=== PATIENT | female | born 1940 | race Caucasian/White ===

== ENCOUNTER 2017-01-25 16:22 | Emergency (ER) | payer MEDICARE ==
[~2017-01-25] VITALS: Ht 157.5 cm; Wt 65.0 kg
[2017-01-25] MEDS ORDERED: MORPHINE SULFATE 4 MG/ML INJ IV PUSH ONE (17:45)
[2017-01-25] MEDS ORDERED: TETANUS/DIPHTHERIA TOXOID ADULT 0.5 ML VIAL IM ONE (17:45)
[2017-01-25] MEDS ORDERED: ONDANSETRON HCL 4 MG/2 ML VIAL IV PUSH ONE (17:45)
[2017-01-25 17:52] LABS: AUTOMATED NEUTROPHIL # 3.9 TH/MM3 (1.8-7.7); BASOPHIL % 0.8 % (0.0-2.0); EOSINOPHIL # 0.1 TH/MM3 (0-0.4); EOSINOPHIL % 2.5 % (0.0-4.0); HEMATOCRIT 35.4 % (35.0-46.0); HEMO FLAGS DIFF FINAL; LYMPH % 19.5 % (9.0-44.0); LYMPHOCYTE # 1.1 TH/MM3 (1.0-4.8); MEAN CELL VOLUME 89.4 FL (80.0-100.0); MEAN CORPUSCULAR HEMOGLOBIN 29.4 PG (27.0-34.0); MEAN CORPUSCULAR HGB CONC 32.8 % (32.0-36.0); MONO % 6.7 % (0.0-8.0); NEUT % 70.5 % (16.0-70.0); PLATELET COUNT 197 TH/MM3 (150-450); RED BLOOD COUNT 3.96 MIL/MM3 (4.00-5.30); RED CELL DISTRIBUTION WIDTH 13.8 % (11.6-17.2); WHITE BLOOD COUNT 5.6 TH/MM3 (4.0-11.0)
[2017-01-25 18:00] LABS: APTT (PATIENT) 30.1 SEC (24.3-30.1); INTERNATIONAL NORMALIZED RATIO 1.9 RATIO; PROTHROMBIN TIME - PATIENT 21.6 SEC (9.8-11.6)
--- NOTE | 2017-01-25 18:01 | RADRPT ---
EXAM DATE/TIME: 01/25/2017 17:25 [facility] COMPARISON: No previous studies available for comparison. INDICATIONS : Pain due to fall. MEDICAL HISTORY : None. SURGICAL HISTORY : Shoulder, elbow, hip. ENCOUNTER: Initial ACUITY: 1 day PAIN SCORE: 6/10 LOCATION: Left upper extremity shoulder FINDINGS: There is a remote fracture deformity left proximal humerus with operative fixation consisting of late ral plate and screw fixation. No acute fractures are seen. CONCLUSION: Remote postsurgical changes left humerus. Rob Durán MD on January 25, 2017 at 18:00 Board Certified Radiologist. This report was verified electronically.
--- NOTE | 2017-01-25 18:04 | RADRPT ---
EXAM DATE/TIME: 01/25/2017 17:31 [facility] COMPARISON: No previous studies available for comparison. INDICATIONS : Pain due to fall. MEDICAL HISTORY : None. SURGICAL HISTORY : Shoulder, elbow, hip. ENCOUNTER: Initial ACUITY: 1 day PAIN SCORE: 6/10 LOCATION: Left chest breast. FINDINGS: A single view of the chest demonstrates the lungs to be symmetrically aerated without evidence of mas s, infiltrate or effusion. The cardiomediastinal contours are unremarkable. Osseous structures are intact. CONCLUSION: No acute disease. Rob Durán MD on January 25, 2017 at 18:03 Board Certified Radiologist. This report was verified electronically.
--- NOTE | 2017-01-25 18:04 | RADRPT ---
EXAM DATE/TIME: 01/25/2017 17:42 [facility] COMPARISON: No previous studies available for comparison. INDICATIONS : Pain due to fall. MEDICAL HISTORY : None. SURGICAL HISTORY : Shoulder, elbow, hip. ENCOUNTER: Initial ACUITY: 1 day PAIN SCORE: 6/10 LOCATION: Left upper extremity elbow. FINDINGS: There is remote deformity of the proximal ulna with plate and screw fixation seen across the proximal ulnar shaft and olecranon. Remote fracture deformity of the proximal radius and plate and screw fixa tion of the mid radius identified. No acute fractures. No effusion. CONCLUSION: No acute disease. Rob Durán MD on January 25, 2017 at 18:02 Board Certified Radiologist. This report was verified electronically.
--- NOTE | 2017-01-25 18:07 | PD ---
HPI Chief Complaint: Fall Time Seen by Provider: 17:04 Travel History International Travel<30 days: No Contact w/Intl Traveler<30days: No Traveled to known affect area: No History of Present Illness HPI 76-year-old female that presents to the ED for evaluation of fall. Patient was brought here by ambulance for avulsion of a fall in the bathroom. Patient was apparently in the toilet and trying to get up she lost her balance and fell. She has chronic changes to her left upper and lower extremity secondary to previous CVAs. Patient has had 4 CVAs in the past and has chronic deformities to the left side secondary to this. She has now is weakness on the left side. She does take blood thinners which she does not what she takes. She denies any loss of consciousness but she states that she is not sure because she doesn't remember everything. She does have an abrasion to the left side of her head. She denies any new numbness, tilling, weakness. She does have pain to her left side especially of left elbow, shoulder, ribs, hip. She has had fractures on the left hip as well as the left elbow with surgeries in the past. No fevers chills or sweats. No blurry vision or double vision. Allergies to tramadol. [place] and she was coming here to visit to go to her son's wedding and she was trying to get ready for this. Patient was not given anything for the pain. She denies any back pain which she states having some neck pain. PFSH Past Medical History Cerebrovascular Accident: Yes (4 strokes and 1 tia ) Diabetes: Yes Social History Alcohol Use: No Tobacco Use: No Substance Use: No Allergies-Medications (Allergen,Severity, Reaction): Coded Allergies: tramadol (Verified Allergy, Severe, Itching, 01/25/17) Review of Systems Except as stated in HPI: all other systems reviewed are Neg Physical Exam Narrative GENERAL: SKIN: Warm and dry. Patient has a skin abrasion to the left side of the temporal area. HEAD: Atraumatic. Normocephalic. EYES: Pupils equal and round. No scleral icterus. No injection or drainage. ENT: No nasal bleeding or discharge. Mucous membranes pink and moist. Tongue is midline. No uvula deviation. NECK: Trachea midline. No JVD. CARDIOVASCULAR: Regular rate and rhythm. No murmurs, S3, S4. RESPIRATORY: No accessory muscle use. Clear to auscultation. Breath sounds equal bilaterally. GASTROINTESTINAL: Abdomen soft, non-tender, nondistended. Hepatic and splenic margins not palpable. MUSCULOSKELETAL: Extremities without clubbing, cyanosis, or edema. No obvious deformities. Patient has obvious weakness to the left side of the body 4 out of 5. Mainly to the left upper and lower extremity. Some soft tissue swelling noted on the left lower leg which appears to be chronic. 1+ pitting edema in the left leg. Somewhat painful with touching the left elbow with touch as well as with movement. Also painful on the left hip with touch and movement. NEUROLOGICAL: Awake and alert. No obvious cranial nerve deficits. Motor grossly within normal limits. Five out of 5 muscle strength in the arms and legs. Normal speech. PSYCHIATRIC: Appropriate mood and affect; insight and judgment normal. Data Data Last Documented VS Vital Signs Date Time Temp Pulse Resp B/P (MAP) Pulse Ox O2 Delivery O2 Flow Rate FiO2 01/25/17 19:32 98.1 76 18 145/76 (99) 100 Orders Orders Electrocardiogram (01/25/17 17:) Complete Blood Count With Diff (01/25/17 17:) Basic Metabolic Panel (Bmp) (01/25/17 17:) Prothrombin Time / Inr (Pt) (01/25/17 17:) Act Partial Throm Time (Ptt) (01/25/17 17:) Chest, Single Ap (01/25/17 17:) Ct Brain W/O Iv Contrast(Rout) (01/25/17 17:) Iv Access Insert/Monitor (01/25/17 17:) Ecg Monitoring (01/25/17 17:) Oximetry (01/25/17 17:) Type And Screen (01/25/17 17:) Elbow, Complete (4 Vws) (01/25/17 17:) Hip, Uni(Ap&Lat) W Ap Pelvis (01/25/17 17:) Shoulder, Limited(2vws) (01/25/17 17:) Ice/Cold Pack (01/25/17 17:) Ct Cerv Spine W/O Contrast (01/25/17 ) Morphine Inj (Morphine Inj) (01/25/17 17:45) Ondansetron Inj (Zofran Inj) (01/25/17 17:45) Tetanus/Diphtheria Tox Adult (Tetanus/Di (01/25/17 17:45) Acetaminophen (Tylenol) (01/25/17 18:45) Wound Care (01/25/17 19:06) Lidocaine 1% Inj (50 Ml) (Xylocaine 1% I (01/25/17 19:15) Labs Laboratory Tests Test 01/25/17 17:15 White Blood Count 5.6 TH/MM3 Red Blood Count 3.96 MIL/MM3 Hemoglobin 11.6 GM/DL Hematocrit 35.4 % Mean Corpuscular Volume 89.4 FL Mean Corpuscular Hemoglobin 29.4 PG Mean Corpuscular Hemoglobin Concent 32.8 % Red Cell Distribution Width 13.8 % Platelet Count 197 TH/MM3 Mean Platelet Volume 10.0 FL Neutrophils (%) (Auto) 70.5 % Lymphocytes (%) (Auto) 19.5 % Monocytes (%) (Auto) 6.7 % Eosinophils (%) (Auto) 2.5 % Basophils (%) (Auto) 0.8 % Neutrophils # (Auto) 3.9 TH/MM3 Lymphocytes # (Auto) 1.1 TH/MM3 Monocytes # (Auto) 0.4 TH/MM3 Eosinophils # (Auto) 0.1 TH/MM3 Basophils # (Auto) 0.0 TH/MM3 CBC Comment DIFF FINAL Differential Comment Prothrombin Time 21.6 SEC Prothromb Time International Ratio 1.9 RATIO Activated Partial Thromboplast Time 30.1 SEC Blood Urea Nitrogen 26 MG/DL Creatinine 1.14 MG/DL Random Glucose 159 MG/DL Calcium Level 8.9 MG/DL Sodium Level 141 MEQ/L Potassium Level 4.3 MEQ/L Chloride Level 107 MEQ/L Carbon Dioxide Level 28.9 MEQ/L Anion Gap 5 MEQ/L Estimat Glomerular Filtration Rate 47 ML/MIN MDM Medical Decision Making Medical Screen Exam Complete: Yes Emergency Medical Condition: Yes Medical Record Reviewed: Yes Interpretation(s) CBC & BMP Diagram 01/25/17 17:15 Calcium Level 8.9 Last Impressions Shoulder X-Ray 01/25/171700 Signed Impressions: Service Date/Time: Wednesday, January 25, 2017 17:25 - CONCLUSION: Remote postsurgical changes left humerus. Rob Durán MD Hip and Pelvis X-Ray 01/25/171700 Signed Impressions: Service Date/Time: Wednesday, January 25, 2017 17:25 - CONCLUSION: No acute bony injury Deniz Appiah MD Head CT 01/25/171700 Signed Impressions: Service Date/Time: Wednesday, January 25, 2017 17:56 - CONCLUSION: No acute disease. Rob Durán MD Elbow X-Ray 01/25/171700 Signed Impressions: Service Date/Time: Wednesday, January 25, 2017 17:42 - CONCLUSION: No acute disease. Rob Durán MD Chest X-Ray 01/25/171700 Signed Impressions: Service Date/Time: Wednesday, January 25, 2017 17:31 - CONCLUSION: No acute disease. Rob Durán MD Cervical Spine CT 01/25/17 0000 Signed Impressions: Service Date/Time: Wednesday, January 25, 2017 17:56 - CONCLUSION: 1. Degenerative changes of the spine are noted. Rob Durán MD Differential Diagnosis Fracture versus head injury versus syncope versus fall versus contusion versus bruise Narrative Course 76-year-old female that presents to the ED for evaluation of fall in the bathroom. Patient was properly examined and was found to have signs and symptoms consistent with fall. Labs and imaging were ordered. Labs and imaging showed no sign of acute disease. Case was discussed in my attending Dr. Peacock who agrees to send patient home. Patient has pain medication at home. Patient was told to take his pain medication as needed. Tylenol for pain. Motrin. Follow-up with PCP. See ED worsening symptoms. Wound care was done for the abrasion on the head. All questions were answered to the best of our ability. is present at bedside who is reliable and agrees with plan. Before being discharged I was asked to reasses wound to the left head, it does appear to have a small laceration about 1 cm. I recommend noe. Patient and family agree. Told to get noe removed in 1 week. Wound care endorsed. Procedures Procedure Narrative LACERATION LOCATION: left temporal area LENGTH: 1 cm NUMBER OF STITCHES/NOE: 2 noe REPAIR: The area of the laceration was prepped with Betadine and sterilely draped. The laceration was infiltrated with 1% Xylocaine. The wound was copiously irrigated and explored without evidence of foreign body, tendon injury or neurovascular injury. The wound was closed using sterile stapler. This was a 1 layer repair. A sterile dressing was applied. The patient was advised to keep the dressing clean and dry. Patient tolerated the procedure well. Diagnosis Primary Impression: Fall Qualified Codes: W19.XXXA - Unspecified fall, initial encounter Additional Impressions: Head contusion Qualified Codes: S00.93XA - Contusion of unspecified part of head, initial encounter Multiple contusions Skin abrasion Patient Instructions: General Instructions Additional Instructions: Taking pain medication as needed. Motrin or Tylenol for pain. Follow with PCP. See ED if worsening symptoms. Ice to the area of pain. Med/Other Pt SpecificInfo: No Change to Meds Disposition: 01 DISCHARGE HOME Condition: Stable Nikolai Sykes Jan 25, 2017 18:07
--- NOTE | 2017-01-25 18:09 | RADRPT ---
EXAM DATE/TIME: 01/25/2017 17:56 [facility] COMPARISON: No previous studies available for comparison. INDICATIONS : Trauma; fall. RADIATION DOSE: 52.71 CTDIvol (mGy) MEDICAL HISTORY : Stroke. SURGICAL HISTORY : None. ENCOUNTER: Initial ACUITY: 1 day PAIN SCALE: 5/10 LOCATION: cranial TECHNIQUE: Multiple contiguous axial images were obtained of the head. Using automated exposure control and adj ustment of the mA and/or kV according to patient size, radiation dose was kept as low as reasonably a chievable to obtain optimal diagnostic quality images. DICOM format image data is available electro nically for review and comparison. FINDINGS: There is encephalomalacia in the right cerebral hemisphere noted in the right frontal, parietal, and occipital regions from remote MCA and [employer] infarct. Remote lacunar infarcts are noted in the basal jhoana glia and thalami bilaterally. There are no signs of acute infarct, hemorrhage, or mass. There is patc hy periventricular white matter characteristic of chronic microvascular ischemic disease. No fracture s are seen. CONCLUSION: No acute disease. Rob Durán MD on January 25, 2017 at 18:07 Board Certified Radiologist. This report was verified electronically.
[2017-01-25 18:12] LABS: BICARBONATE 28.9 MEQ/L (21.0-32.0); POTASSIUM 4.3 MEQ/L (3.5-5.1)
--- NOTE | 2017-01-25 18:15 | RADRPT ---
EXAM DATE/TIME: 01/25/2017 17:25 [facility] COMPARISON: No previous studies available for comparison. INDICATIONS : Pain due to fall. MEDICAL HISTORY : None. SURGICAL HISTORY : Shoulder, elbow, hip. ENCOUNTER: Initial ACUITY: 1 day PAIN SCORE: 6/10 LOCATION: Left FINDINGS: Left total hip arthroplasty is present. The hardware is intact. Alignment is anatomic. There is no ev idence of fracture. Bony pelvis appears intact without displaced fracture. CONCLUSION: No acute bony injury Deniz Appiah MD on January 25, 2017 at 18:12 Board Certified Radiologist. This report was verified electronically.
--- NOTE | 2017-01-25 18:33 | RADRPT ---
EXAM DATE/TIME: 01/25/2017 17:56 [facility] COMPARISON: CT BRAIN W/O CONTRAST, January 25, 2017, 17:56. INDICATIONS : Trauma; fall. RADIATION DOSE: 46.21 CTDIvol (mGy) MEDICAL HISTORY : Stroke. SURGICAL HISTORY : None. ENCOUNTER: Initial ACUITY: 1 day PAIN SCALE: 5/10 LOCATION: Bilateral neck TECHNIQUE: Volumetric scanning of the cervical spine was performed. Multiplanar reconstructions in the sagittal, coronal and oblique axial planes were performed. Using automated exposure control and adjustment o f the mA and/or kV according to patient size, radiation dose was kept as low as reasonably achievable to obtain optimal diagnostic quality images. DICOM format image data is available electronically f or review and comparison. FINDINGS: There is severe disc space narrowing at C5-6 and C6-7 with endplate sclerosis and moderate anterior o steophytosis. Odontoid process is intact. There are no compression deformities. No prevertebral soft tissue swelling. Cervicothoracic junction is approximated. Moderate uncovertebral hypertrophy at C5-6 and C6-7. No fracture or listhesis. There is severe bilateral foraminal stenosis at C5-6, right and left. Mild canal narrowing secondary to disc osteophyte complex. At C6-7 mild to moderate left forami nal narrowing. CONCLUSION: 1. Degenerative changes of the spine are noted. Rob Durán MD on January 25, 2017 at 18:29 Board Certified Radiologist. This report was verified electronically.
--- NOTE | 2017-01-25 18:35 | PD ---
Data Data Last Documented VS Vital Signs Date Time Temp Pulse Resp B/P (MAP) Pulse Ox O2 Delivery O2 Flow Rate FiO2 01/25/17 19:32 98.1 76 18 145/76 (99) 100 Orders Orders Complete Blood Count With Diff (01/25/17 17:) Basic Metabolic Panel (Bmp) (01/25/17 17:01) Prothrombin Time / Inr (Pt) (01/25/17 17:) Act Partial Throm Time (Ptt) (01/25/17 17:) Chest, Single Ap (01/25/17 17:) Ct Brain W/O Iv Contrast(Rout) (01/25/17 17:) Iv Access Insert/Monitor (01/25/17:) Ecg Monitoring (01/25/17:) Oximetry (01/25/17:) Type And Screen (01/25/17 17:) Elbow, Complete (4 Vws) (01/25/17 17:) Hip, Uni(Ap&Lat) W Ap Pelvis (01/25/17 17:01) Shoulder, Limited(2vws) (01/25/17 17:01) Ice/Cold Pack (01/25/17 17:01) Ct Cerv Spine W/O Contrast (01/25/17 ) Morphine Inj (Morphine Inj) (01/25/17 17:45) Ondansetron Inj (Zofran Inj) (01/25/17 17:45) Tetanus/Diphtheria Tox Adult (Tetanus/Di (01/25/17 17:45) Acetaminophen (Tylenol) (01/25/17 18:45) Wound Care (01/25/17 19:06) Lidocaine 1% Inj (50 Ml) (Xylocaine 1% I (01/25/17 19:15) Labs Laboratory Tests Test 01/25/17 17:15 White Blood Count 5.6 TH/MM3 Red Blood Count 3.96 MIL/MM3 Hemoglobin 11.6 GM/DL Hematocrit 35.4 % Mean Corpuscular Volume 89.4 FL Mean Corpuscular Hemoglobin 29.4 PG Mean Corpuscular Hemoglobin Concent 32.8 % Red Cell Distribution Width 13.8 % Platelet Count 197 TH/MM3 Mean Platelet Volume 10.0 FL Neutrophils (%) (Auto) 70.5 % Lymphocytes (%) (Auto) 19.5 % Monocytes (%) (Auto) 6.7 % Eosinophils (%) (Auto) 2.5 % Basophils (%) (Auto) 0.8 % Neutrophils # (Auto) 3.9 TH/MM3 Lymphocytes # (Auto) 1.1 TH/MM3 Monocytes # (Auto) 0.4 TH/MM3 Eosinophils # (Auto) 0.1 TH/MM3 Basophils # (Auto) 0.0 TH/MM3 CBC Comment DIFF FINAL Differential Comment Prothrombin Time 21.6 SEC Prothromb Time International Ratio 1.9 RATIO Activated Partial Thromboplast Time 30.1 SEC Blood Urea Nitrogen 26 MG/DL Creatinine 1.14 MG/DL Random Glucose 159 MG/DL Calcium Level 8.9 MG/DL Sodium Level 141 MEQ/L Potassium Level 4.3 MEQ/L Chloride Level 107 MEQ/L Carbon Dioxide Level 28.9 MEQ/L Anion Gap 5 MEQ/L Estimat Glomerular Filtration Rate 47 ML/MIN MDM Supervised Visit with JOHNIE: Yes Narrative Course I, Dr. Peacock, have reviewed the advance practice practitioner's documentation and am in agreement, met with the patient face to face, made the diagnosis, and the medical decision making was done by me. *My assessment and Findings: Patient seen and examined by me in addition to Nikolai Sykes PA-C, patient is a 76-year-old female with a history of left-sided weakness after a previous stroke. She fell in the bathroom today and had several complaints, she had x- rays of multiple joints as well as CAT scan of head and neck all of which were reassuring. Patient was able to see the marriage of her son today but did miss the perception, she would like to go home at this point. I think this is reasonable. She stable for discharge. She was given Tylenol in the emergency department because she didn't want to be overly sedate and her and one her overly sedate. He has hydrocodone at home from a previous prescription to her and will use sparingly as needed. Discussed need for follow-up with primary care physician and return to ED criteria Beny Peacock MD Jan 25, 2017 18:35
[2017-01-25] MEDS ORDERED: ACETAMINOPHEN 500 MG CPLT PO ONE (18:45)
[2017-01-25] MEDS ORDERED: LIDOCAINE HCL 1% 50 ML VIAL INFIL ONE (19:15)
[2017-01-25 19:32] VITALS: BP 145/76; PULSE 76; RESP 18; TEMP 98.1; O2SAT 100
== END 2017-01-25 19:35 | disposition home or self-care (01) ==
LOC: NEPC 16:22
DX: S01.81XA Laceration without foreign body of other part of head, initial encounter (principal); T14.8XXA Other injury of unspecified body region, initial encounter; R53.1 Weakness; M25.522 Pain in left elbow; M54.2 Cervicalgia; W18.11XA Fall from or off toilet without subsequent striking against object, initial encounter; Z86.73 Personal history of transient ischemic attack (TIA), and cerebral infarction without residual deficits; Z23 Encounter for immunization
CPT/HCPCS: 12011; 70450; 71010; 72125; 73030; 73080; 73502; 80048; 85025; 85610; 85730; 86850; 86900; 86901; 90471; 90714; 96374; 96375; 99285; J2405